=== PATIENT | female | born 1945 | race Caucasian/White ===

== ENCOUNTER 2021-06-21 16:13 | Inpatient (IN) | payer MEDICARE, BC ==
[~2021-06-21] VITALS: Ht 154.9 cm; Wt 80.0 kg
[2021-06-21 17:02] LABS: BASOPHILS % (AUTO) 0.2 % (0-1); EOSINOPHILS % (AUTO) 0 % (0-6); HEMATOCRIT 36.1 % (35.0-45.0); HEMOGLOBIN 11.9 g/dl (12.0-16.0); LYMPHOCYTES # (AUTO) 1.4 X10'3 (1.1-4.8); LYMPHOCYTES % (AUTO) 14.4 % (21-51); MEAN CORPUSCULAR HEMOGLOBIN 29.2 PG (27.0-31.0); MEAN CORPUSCULAR VOLUME 88.3 FL (78-98); MEAN PLATELET VOLUME 6.9 FL (7.4-10.4); MONOCYTES # (AUTO) 0.7 X10'3 (0-0.9); NEUTROPHILS # (AUTO) 7.7 X10'3 (1.8-7.7); NEUTROPHILS % (AUTO) 78.4 % (42-75); PLATELET COUNT 382 X10'3 (140-440); RED BLOOD COUNT 4.08 X10'6 (4.20-5.60); RED CELL DISTRIBUTION WIDTH 13.8 % (11.5-14.5); WHITE BLOOD COUNT 9.8 X10'3 (4.5-11.0)
[2021-06-21] MEDS ORDERED: FURO-150 PO (17:16)
[2021-06-21] MEDS ORDERED: LEVO75TA7 PO (17:16)
[2021-06-21] MEDS ORDERED: HYDR-3968 PO (17:16)
[2021-06-21] MEDS ORDERED: AMLO5TAB4 PO (17:16)
[2021-06-21] MEDS ORDERED: ATOR10TA70 PO (17:16)
[2021-06-21] MEDS ORDERED: POTA8TAB3 PO (17:16)
[2021-06-21 17:17] LABS: ALANINE AMINOTRANSFERASE 12 U/L (12-78); ALBUMIN 3.4 G/DL (3.4-5.0); ALBUMIN/GLOBULIN RATIO 0.9 (1.1-1.5); ALKALINE PHOSPHATASE 74 IU/L (46-116); ANION GAP 11 (8-16); ASPARTATE AMINO TRANSFERASE 33 U/L (10-37); BILIRUBIN,TOTAL 0.6 MG/DL (0.1-1.0); BLOOD UREA NITROGEN 18 MG/DL (7-18); BUN/CREATININE RATIO 13.6 (6.6-38.0); CALCIUM 8.3 MG/DL (8.5-10.1); CHLORIDE 103 MMOL/L (99-107); CREATININE 1.32 MG/DL (0.40-0.90); GLUCOSE 139 MG/DL (70-104); POTASSIUM 3.1 MMOL/L (3.5-5.1); SODIUM 143 MMOL/L (135-145); TOTAL CARBON DIOXIDE 29.2 MMOL/L (24-32); TOTAL PROTEIN 7.2 G/DL (6.4-8.2); eGFR 39 ML/MIN
[2021-06-21] MEDS ORDERED: acetaminophen 325mg tablet PO PRN ×2 (17:30)
[2021-06-21] MEDS ORDERED: potassium Cl 40MEQ/1/2NS 520ml 520 ML IV PRN ×2 (17:30)
[2021-06-21] MEDS ORDERED: magnesium 2GM in 50ml NS 50 ML IV PRN (17:30)
[2021-06-21] MEDS ORDERED: mag hydrox/Alum hydrox/simeth 30ml oral suspension PO PRN (17:30)
[2021-06-21] MEDS ORDERED: morphine 2 MG/ML inj. syringe IV PRN (17:30)
[2021-06-21] MEDS ORDERED: HYDROcodone/acetaminophen 5mg/325mg tablet PO PRN (17:30)
[2021-06-21] MEDS ORDERED: magnesium 4gm in 100ml NS 100 ML IV PRN (17:30)
[2021-06-21] MEDS ORDERED: potassium Cl 20 mEq SR tablet PO PRN (17:30)
[2021-06-21] MEDS: morphine 2 MG/ML inj. syringe IV PRN (18:33)
[2021-06-21] MEDS: ondansetron/PF 4mg/2ml inj IV PRN (18:33)
--- NOTE | 2021-06-21 19:20 | NUR ---
PATIENT ADMITTED TO [facility]B FROM ER FOR FEMUR FRACTURE. PLACED COMFORTABLE IN BED. VITAL SIGNS TAKEN AND RECORDED.
[2021-06-21 19:32] VITALS: BP 121/73
[2021-06-21 20:00] VITALS: BP 117/60
[2021-06-21] MEDS: K and/or MAG REPLACEMENT MC SCH (20:00)
[2021-06-21] MEDS: HYDROcodone/acetaminophen 10/325mg tab PO PRN (20:05)
[2021-06-21] MEDS: atorvastatin 10mg tablet PO SCH (20:08)
[2021-06-21] MEDS: docusate sod 100mg capsule PO SCH (20:08)
[2021-06-21] MEDS: potassium Cl 20 mEq SR tablet PO PRN (20:11)
[2021-06-22] VITALS (23 sets, daily range): BP systolic 97–153; BP diastolic 51–104
[2021-06-22] MEDS: morphine 2 MG/ML inj. syringe IV PRN (01:37)
[2021-06-22] MEDS: potassium Cl 20 mEq SR tablet PO PRN (01:39)
[2021-06-22] MEDS: HYDROcodone/acetaminophen 10/325mg tab PO PRN (04:02)
[2021-06-22] MEDS ORDERED: normal saline 1000ml 1,000 ML IV SCH (06:10)
[2021-06-22 06:16] LABS: BASOPHILS % (AUTO) 0.3 % (0-1); EOSINOPHILS % (AUTO) 0.4 % (0-6); HEMATOCRIT 32.6 % (35.0-45.0); HEMOGLOBIN 10.8 g/dl (12.0-16.0); LYMPHOCYTES # (AUTO) 1.5 X10'3 (1.1-4.8); MEAN CORPUSCULAR HEMOGLOBIN 29.5 PG (27.0-31.0); MEAN CORPUSCULAR HGB CONC 33.2 g/dL (33.0-36.5); MEAN CORPUSCULAR VOLUME 88.7 FL (78-98); MEAN PLATELET VOLUME 7.8 FL (7.4-10.4); MONOCYTES # (AUTO) 0.7 X10'3 (0-0.9); MONOCYTES % (AUTO) 8.7 % (2-12); NEUTROPHILS # (AUTO) 5.4 X10'3 (1.8-7.7); NEUTROPHILS % (AUTO) 70.6 % (42-75); PLATELET COUNT 321 X10'3 (140-440); RED BLOOD COUNT 3.67 X10'6 (4.20-5.60); RED CELL DISTRIBUTION WIDTH 14.1 % (11.5-14.5); WHITE BLOOD COUNT 7.7 X10'3 (4.5-11.0)
[2021-06-22 06:24] LABS: PARTIAL THROMBOPLASTIN TIME 24 SECONDS (22-32)
--- NOTE | 2021-06-22 06:30 | NUR ---
Problems reprioritized. Patient report given, questions answered & plan of care reviewed with RAISA ROSALES.
--- NOTE | 2021-06-22 06:44 | NUR ---
Patient in room [facility]. I have received report from Ariana SINHA RN and had the opportunity to ask questions and assume patient care.
[2021-06-22 06:53] LABS: ALANINE AMINOTRANSFERASE 8 U/L (12-78); ALBUMIN/GLOBULIN RATIO 0.9 (1.1-1.5); ALKALINE PHOSPHATASE 70 IU/L (46-116); ANION GAP 11 (8-16); ASPARTATE AMINO TRANSFERASE 30 U/L (10-37); BILIRUBIN,TOTAL 0.8 MG/DL (0.1-1.0); BLOOD UREA NITROGEN 15 MG/DL (7-18); BUN/CREATININE RATIO 13.8 (6.6-38.0); CALCIUM 8.1 MG/DL (8.5-10.1); CHLORIDE 103 MMOL/L (99-107); CREATININE 1.09 MG/DL (0.40-0.90); GLUCOSE 120 MG/DL (70-104); MAGNESIUM 1.4 MG/DL (1.5-2.4); POTASSIUM 3.4 MMOL/L (3.5-5.1); SODIUM 138 MMOL/L (135-145); TOTAL CARBON DIOXIDE 23.9 MMOL/L (24-32); TOTAL PROTEIN 6.5 G/DL (6.4-8.2); eGFR 49 ML/MIN
[2021-06-22] MEDS: amLODIPine 5mg tablet PO SCH (08:00)
[2021-06-22] MEDS: docusate sod 100mg capsule PO SCH ×2 (08:00→20:00)
[2021-06-22] MEDS: heparin, porcine 5000 units/ml vial SQ SCH ×3 (08:00→16:00)
[2021-06-22] MEDS: K and/or MAG REPLACEMENT MC SCH ×2 (08:00→22:12)
[2021-06-22] MEDS: furosemide 20MG tablet PO SCH ×2 (08:11→11:24)
[2021-06-22] MEDS: levoTHYROXINE 75mcg tablet PO SCH (08:12)
[2021-06-22] MEDS: HYDROmorphone 1 mg/ml syringe IV PRN ×2 (08:13→20:18)
--- NOTE | 2021-06-22 08:36 | NUR ---
per pharmacist mg and k Iv are compatible at Y site and to be piggy backed with NS.
[2021-06-22] MEDS ORDERED: LIDOcaine/PRILOcaine 5gm cream TP ONE (10:05)
[2021-06-22] MEDS: oxyCODONE/APAP 10/325mg tablet PO PRN (11:24)
[2021-06-22] MEDS: ondansetron/PF 4mg/2ml inj IV PRN (11:36)
[2021-06-22] MEDS ORDERED: cyclobenzaprine 10mg tablet PO STA (12:02)
[2021-06-22] MEDS ORDERED: ringers solution, lacted 1,000 ML IV SCH (12:25)
[2021-06-22] MEDS ORDERED: morphine 2 MG/ML inj. syringe IV PRN (12:25)
[2021-06-22] MEDS ORDERED: morphine 4 MG/ML inj SYRINge IV PRN (12:25)
[2021-06-22] MEDS ORDERED: ondansetron/PF 4mg/2ml inj IV PRN (12:25)
[2021-06-22] MEDS ORDERED: meperidine/PF 25mg/ml syringe IV PRN ×3 (12:25)
[2021-06-22] MEDS ORDERED: proCHLORperazine 10 MG/2 ml inj IV PRN (12:25)
[2021-06-22] MEDS: ringers solution, lacted 1,000 ML IV SCH (12:40)
[2021-06-22] MEDS ORDERED: ceFAZolin 2gm in dextrose, iso 50 ML IV ONE (13:00)
--- NOTE | 2021-06-22 13:00 | NUR ---
PRE OP MEDS ORDERED AND WILL START WHEN OR CALLS FOR A TIME FOR SURGERY.
--- NOTE | 2021-06-22 14:20 | NUR ---
OR CALLED AND SAID THEY WERE COMING UP. DID NOT HAVE ENOUGH TIME TO HANG EVERYTHING WITH NO NOTICE. HUNG KALPANA PER RECOVERY NURSE AND SENT ANCEF WITH PT ALONG WITH K THAT NEEDS TO BE REPLACED. PHARMACY STILL HAD NOT SENT UP MY VANCO AND ANCEF TO BE HUNG. CALLED TO HAVE IT SENT STAT
[2021-06-22] MEDS: famotidine/PF 10 mg/ml inj IV SCH ×2 (14:57→20:15)
--- NOTE | 2021-06-22 15:06 | NUR ---
Problems reprioritized. Patient report given, questions answered & plan of care reviewed with Renzo ROSALES in recovery .
--- NOTE | 2021-06-22 15:33 | NUR ---
eunice PAGER ID: [phone] MESSAGE: 350 B JOHNNY PT HAS A LOUIS PLACED BY ER AND NO ORDER CAN I PUT IN A LOUIS A ORDER? RAISA
[2021-06-22] MEDS ORDERED: fentaNYL/PF 50MCG/1 ML 2ML syringe ONE (15:45)
[2021-06-22] MEDS ORDERED: MIDAZolam 1 MG/ML 5ML VIAL ONE (15:45)
--- NOTE | 2021-06-22 17:03 | NUR ---
Received from OR via , accompanied by Anesthesiologist DR GOODEN and report given by Anesthesiolgist. PT PRESENTS WITH 20G LEFT AC, LEFT HIP DRESSING DRY AND INTACT, VSS. Addendum: 06/22/21 at 2003 by Lilo Gonzalez RN, RN Amended: Links added.
--- NOTE | 2021-06-22 18:37 | NUR ---
Problems reprioritized. Patient report given, questions answered & plan of care reviewed with BHARATH SINHA RN .
--- NOTE | 2021-06-22 18:43 | NUR ---
Report called to receiving nurse BHARATH SINHA RN. Transferred via HOSPITAL BED, Belongings WERE LEFT IN PT ROOM BEFORE SURGERY. PT DAUGHTER IN ROOM. PT GIVEN CALL LIGHT, BED IN LOW AND MASOUD POSITION.. Special Issues communicated to receiving nurse. Addendum: 06/22/21 at 2003 by Lilo Gonzalez RN, RN Amended: Links added.
[2021-06-22] MEDS ORDERED: famotidine/PF 10 mg/ml inj IV SCH (20:00)
[2021-06-22] MEDS: atorvastatin 10mg tablet PO SCH (20:13)
[2021-06-22] MEDS: cyclobenzaprine 10mg tablet PO PRN (20:13)
[2021-06-23] VITALS: BP 122/67
[2021-06-23] MEDS: heparin, porcine 5000 units/ml vial SQ SCH ×3 (00:47→15:59)
[2021-06-23] MEDS: HYDROmorphone 1 mg/ml syringe IV PRN (00:52)
[2021-06-23 04:00] VITALS: BP 112/61
--- NOTE | 2021-06-23 06:00 | NUR ---
Problems reprioritized. Patient report given, questions answered & plan of care reviewed with MICHELLE ROSALES.
--- NOTE | 2021-06-23 06:01 | NUR ---
Patient in room [facility]. I have received report from yojana dial rn and had the opportunity to ask questions and assume patient care.
[2021-06-23 07:27] LABS: BASOPHILS % (AUTO) 0.6 % (0-1); EOSINOPHILS % (AUTO) 0.1 % (0-6); HEMATOCRIT 31.4 % (35.0-45.0); HEMOGLOBIN 10.3 g/dl (12.0-16.0); LYMPHOCYTES # (AUTO) 1.2 X10'3 (1.1-4.8); MEAN CORPUSCULAR HEMOGLOBIN 29.2 PG (27.0-31.0); MEAN CORPUSCULAR HGB CONC 32.8 g/dL (33.0-36.5); MEAN CORPUSCULAR VOLUME 88.9 FL (78-98); MEAN PLATELET VOLUME 7.6 FL (7.4-10.4); MONOCYTES # (AUTO) 0.7 X10'3 (0-0.9); MONOCYTES % (AUTO) 10.1 % (2-12); NEUTROPHILS # (AUTO) 5.3 X10'3 (1.8-7.7); NEUTROPHILS % (AUTO) 72.2 % (42-75); PLATELET COUNT 316 X10'3 (140-440); RED BLOOD COUNT 3.54 X10'6 (4.20-5.60); RED CELL DISTRIBUTION WIDTH 13.9 % (11.5-14.5); WHITE BLOOD COUNT 7.3 X10'3 (4.5-11.0)
[2021-06-23] MEDS: levoTHYROXINE 75mcg tablet PO SCH (07:33)
[2021-06-23] MEDS: furosemide 20MG tablet PO SCH ×2 (07:33→12:45)
[2021-06-23] MEDS: oxyCODONE/APAP 10/325mg tablet PO PRN ×2 (07:33→19:17)
[2021-06-23] MEDS: docusate sod 100mg capsule PO SCH ×2 (07:34→21:27)
[2021-06-23] MEDS: amLODIPine 5mg tablet PO SCH (07:35)
[2021-06-23 08:00] VITALS: BP 122/65
[2021-06-23] MEDS: K and/or MAG REPLACEMENT MC SCH ×2 (08:00→20:00)
[2021-06-23 08:09] LABS: ALANINE AMINOTRANSFERASE 10 U/L (12-78); ALBUMIN 2.6 G/DL (3.4-5.0); ALBUMIN/GLOBULIN RATIO 0.7 (1.1-1.5); ALKALINE PHOSPHATASE 65 IU/L (46-116); ANION GAP 9 (8-16); ASPARTATE AMINO TRANSFERASE 28 U/L (10-37); BILIRUBIN,TOTAL 0.9 MG/DL (0.1-1.0); BLOOD UREA NITROGEN 14 MG/DL (7-18); BUN/CREATININE RATIO 11.3 (6.6-38.0); CHLORIDE 103 MMOL/L (99-107); CREATININE 1.24 MG/DL (0.40-0.90); GLUCOSE 120 MG/DL (70-104); MAGNESIUM 2.4 MG/DL (1.5-2.4); SODIUM 138 MMOL/L (135-145); TOTAL CARBON DIOXIDE 26.2 MMOL/L (24-32); TOTAL PROTEIN 6.3 G/DL (6.4-8.2); eGFR 42 ML/MIN
[2021-06-23] MEDS: ringers solution, lacted 1,000 ML IV SCH (08:10)
[2021-06-23] MEDS: famotidine/PF 10 mg/ml inj IV SCH ×2 (08:54→21:27)
[2021-06-23] MEDS: cyclobenzaprine 10mg tablet PO PRN (09:06)
--- NOTE | 2021-06-23 09:36 | NUR ---
Page Sent PAGER ID: [phone] MESSAGE: 350 b maría elena Culver does not have a diet ordered. can I order one. zina [phone]
[2021-06-23 11:00] VITALS: BP 120/60
[2021-06-23] MEDS ORDERED: cyclobenzaprine 10mg tablet PO PRN ×2 (12:20→21:00)
--- NOTE | 2021-06-23 15:00 | NUR ---
PT IV NO LONGER PATENT AND WAS LEAKING. PER SALLY PT NEEDS IV. I PAGED PICC NURSE AND CALLED WITH NO RESPONSE. ALSO ASKED IF THERE IS ANYONE ELSE THAT CAN ATTEMPT TO CHARGE NURSE.
--- NOTE | 2021-06-23 18:34 | NUR ---
Problems reprioritized. Patient report given, questions answered & plan of care reviewed with BHARATH SINHA RN.
--- NOTE | 2021-06-23 18:35 | NUR ---
Patient in room [facility]. I have received report from MICHELLE ROSALES and had the opportunity to ask questions and assume patient care.
[2021-06-23 20:00] VITALS: BP 115/64
[2021-06-23] MEDS: atorvastatin 10mg tablet PO SCH (21:27)
[2021-06-24] VITALS: BP 126/66
[2021-06-24] MEDS: ringers solution, lacted 1,000 ML IV SCH ×2 (00:28→23:46)
[2021-06-24] MEDS: heparin, porcine 5000 units/ml vial SQ SCH ×4 (00:28→23:41)
[2021-06-24] MEDS: oxyCODONE/APAP 10/325mg tablet PO PRN ×4 (04:43→21:24)
--- NOTE | 2021-06-24 06:21 | NUR ---
Problems reprioritized. Patient report given, questions answered & plan of care reviewed with ESTEFANÍA ROSALES.
--- NOTE | 2021-06-24 06:47 | NUR ---
Patient in room [facility]. I have received report from Viviana ROSALES and had the opportunity to ask questions and assume patient care.
[2021-06-24 07:00] VITALS: BP 108/63
[2021-06-24 07:06] LABS: BASOPHILS % (AUTO) 0.6 % (0-1); EOSINOPHILS # (AUTO) 0.1 X10'3 (0-0.9); EOSINOPHILS % (AUTO) 0.9 % (0-6); HEMATOCRIT 28.6 % (35.0-45.0); HEMOGLOBIN 9.6 g/dl (12.0-16.0); LYMPHOCYTES # (AUTO) 1.6 X10'3 (1.1-4.8); LYMPHOCYTES % (AUTO) 20.2 % (21-51); MEAN CORPUSCULAR HEMOGLOBIN 29.7 PG (27.0-31.0); MEAN CORPUSCULAR HGB CONC 33.5 g/dL (33.0-36.5); MEAN CORPUSCULAR VOLUME 88.9 FL (78-98); MEAN PLATELET VOLUME 7.8 FL (7.4-10.4); MONOCYTES # (AUTO) 0.8 X10'3 (0-0.9); MONOCYTES % (AUTO) 9.9 % (2-12); NEUTROPHILS # (AUTO) 5.4 X10'3 (1.8-7.7); NEUTROPHILS % (AUTO) 68.4 % (42-75); PLATELET COUNT 295 X10'3 (140-440); RED BLOOD COUNT 3.22 X10'6 (4.20-5.60); RED CELL DISTRIBUTION WIDTH 13.7 % (11.5-14.5); WHITE BLOOD COUNT 7.9 X10'3 (4.5-11.0)
[2021-06-24 07:34] LABS: ALANINE AMINOTRANSFERASE 9 U/L (12-78); ALBUMIN 2.2 G/DL (3.4-5.0); ALBUMIN/GLOBULIN RATIO 0.6 (1.1-1.5); ALKALINE PHOSPHATASE 57 IU/L (46-116); ANION GAP 6 (8-16); ASPARTATE AMINO TRANSFERASE 21 U/L (10-37); BILIRUBIN,TOTAL 0.8 MG/DL (0.1-1.0); BLOOD UREA NITROGEN 14 MG/DL (7-18); BUN/CREATININE RATIO 12.4 (6.6-38.0); CALCIUM 8.1 MG/DL (8.5-10.1); CHLORIDE 101 MMOL/L (99-107); CREATININE 1.13 MG/DL (0.40-0.90); GLUCOSE 111 MG/DL (70-104); MAGNESIUM 1.9 MG/DL (1.5-2.4); POTASSIUM 3.4 MMOL/L (3.5-5.1); SODIUM 135 MMOL/L (135-145); TOTAL CARBON DIOXIDE 28.5 MMOL/L (24-32); TOTAL PROTEIN 5.8 G/DL (6.4-8.2); eGFR 47 ML/MIN
[2021-06-24] MEDS: docusate sod 100mg capsule PO SCH ×2 (08:11→21:24)
[2021-06-24] MEDS: amLODIPine 5mg tablet PO SCH (08:12)
[2021-06-24] MEDS: levoTHYROXINE 75mcg tablet PO SCH (08:12)
[2021-06-24] MEDS: potassium Cl 20 mEq SR tablet PO PRN ×2 (08:13→15:06)
[2021-06-24] MEDS: furosemide 20MG tablet PO SCH ×2 (08:13→12:04)
[2021-06-24] MEDS: famotidine/PF 10 mg/ml inj IV SCH (08:14)
[2021-06-24] MEDS: K and/or MAG REPLACEMENT MC SCH ×2 (08:15→20:00)
--- NOTE | 2021-06-24 08:47 | NUR ---
PAGER ID: [phone] MESSAGE: 350B JOHNNY V: patient c/o pain, one Percocet order is q4h and one is q6h. can you please clarify this? beth [phone]
[2021-06-24 09:00] VITALS: BP 115/64
[2021-06-24 13:14] VITALS: BP 125/77
[2021-06-24] MEDS ORDERED: ketorolac tromethamine 15mg/ml inj. IV ONE (15:50)
[2021-06-24] MEDS ORDERED: cyclobenzaprine 10mg tablet PO PRN (16:04)
--- NOTE | 2021-06-24 17:45 | NUR ---
PAGER ID: [phone] MESSAGE: 350B Yomi Culver: patient K and Mg replacement protocol fell off the eMAR. can I add it back on? thank you! beth [phone]
[2021-06-24] MEDS ORDERED: potassium Cl 20 mEq SR tablet PO PRN ×2 (17:50)
[2021-06-24] MEDS ORDERED: magnesium 2GM in 50ml NS 50 ML IV PRN (17:50)
[2021-06-24] MEDS ORDERED: magnesium 4gm in 100ml NS 100 ML IV PRN (17:50)
[2021-06-24] MEDS ORDERED: potassium Cl 40MEQ/1/2NS 520ml 520 ML IV PRN (17:50)
[2021-06-24] MEDS ORDERED: magnesium Cl slow-release 64mg tablet PO PRN (17:50)
--- NOTE | 2021-06-24 18:09 | NUR ---
Problems reprioritized. Patient report given, questions answered & plan of care reviewed with BOBBY Mancilla.
--- NOTE | 2021-06-24 18:09 | NUR ---
Student documentation: I have reviewed and agree with all interventions, assessments performed and documented by SN Ike. Student Medication Administration: For this medication-pass time frame, all medication were reviewed, dispensed, administered and documented per hospital policy by SN Ike.
[2021-06-24 19:00] VITALS: BP 110/65
[2021-06-24] MEDS: famotidine 20mg tablet PO SCH (21:24)
[2021-06-24] MEDS: atorvastatin 10mg tablet PO SCH (21:24)
[2021-06-25] VITALS: BP 106/59
[2021-06-25] MEDS: oxyCODONE/APAP 10/325mg tablet PO PRN ×5 (05:11→21:59)
[2021-06-25 06:25] LABS: BASOPHILS # (AUTO) 0.1 X10'3 (0-0.2); BASOPHILS % (AUTO) 0.7 % (0-1); EOSINOPHILS # (AUTO) 0.4 X10'3 (0-0.9); EOSINOPHILS % (AUTO) 4.9 % (0-6); HEMATOCRIT 28.1 % (35.0-45.0); HEMOGLOBIN 9.5 g/dl (12.0-16.0); LYMPHOCYTES # (AUTO) 2.7 X10'3 (1.1-4.8); LYMPHOCYTES % (AUTO) 30.5 % (21-51); MEAN CORPUSCULAR HEMOGLOBIN 29.8 PG (27.0-31.0); MEAN CORPUSCULAR HGB CONC 33.9 g/dL (33.0-36.5); MEAN CORPUSCULAR VOLUME 87.8 FL (78-98); MEAN PLATELET VOLUME 8.3 FL (7.4-10.4); MONOCYTES # (AUTO) 0.8 X10'3 (0-0.9); MONOCYTES % (AUTO) 8.9 % (2-12); NEUTROPHILS # (AUTO) 4.8 X10'3 (1.8-7.7); PLATELET COUNT 310 X10'3 (140-440); RED BLOOD COUNT 3.21 X10'6 (4.20-5.60); RED CELL DISTRIBUTION WIDTH 13.4 % (11.5-14.5); WHITE BLOOD COUNT 8.7 X10'3 (4.5-11.0)
[2021-06-25 06:30] VITALS: BP 118/70
--- NOTE | 2021-06-25 06:50 | NUR ---
Patient in room [facility]. I have received report from BOBBY Nix and had the opportunity to ask questions and assume patient care.
[2021-06-25 06:53] LABS: ALANINE AMINOTRANSFERASE 10 U/L (12-78); ALBUMIN 2.3 G/DL (3.4-5.0); ALBUMIN/GLOBULIN RATIO 0.6 (1.1-1.5); ALKALINE PHOSPHATASE 64 IU/L (46-116); ANION GAP 8 (8-16); ASPARTATE AMINO TRANSFERASE 24 U/L (10-37); BILIRUBIN,TOTAL 0.9 MG/DL (0.1-1.0); BLOOD UREA NITROGEN 17 MG/DL (7-18); BUN/CREATININE RATIO 16.3 (6.6-38.0); CALCIUM 7.8 MG/DL (8.5-10.1); CHLORIDE 100 MMOL/L (99-107); CREATININE 1.04 MG/DL (0.40-0.90); GLUCOSE 92 MG/DL (70-104); MAGNESIUM 1.9 MG/DL (1.5-2.4); POTASSIUM 4.2 MMOL/L (3.5-5.1); SODIUM 136 MMOL/L (135-145); TOTAL CARBON DIOXIDE 28.2 MMOL/L (24-32); TOTAL PROTEIN 6.3 G/DL (6.4-8.2); eGFR 51 ML/MIN
[2021-06-25] MEDS: K and/or MAG REPLACEMENT MC SCH ×2 (08:00→20:00)
[2021-06-25] MEDS: furosemide 20MG tablet PO SCH ×2 (09:50→12:57)
[2021-06-25] MEDS: famotidine 20mg tablet PO SCH ×2 (09:50→20:43)
[2021-06-25] MEDS: amLODIPine 5mg tablet PO SCH (09:51)
[2021-06-25] MEDS: magnesium hydroxide 30ml (MOM) UD suspension PO PRN (09:51)
[2021-06-25] MEDS: docusate sod 100mg capsule PO SCH ×2 (09:51→20:43)
[2021-06-25] MEDS: levoTHYROXINE 75mcg tablet PO SCH (09:51)
[2021-06-25] MEDS: heparin, porcine 5000 units/ml vial SQ SCH ×2 (09:51→15:23)
[2021-06-25 11:00] VITALS: BP 112/58
--- NOTE | 2021-06-25 18:20 | NUR ---
Problems reprioritized. Patient report given, questions answered & plan of care reviewed with BOBBY Nix.
[2021-06-25 20:00] VITALS: BP 109/61
[2021-06-25] MEDS: atorvastatin 10mg tablet PO SCH (20:43)
--- NOTE | 2021-06-25 20:56 | NUR ---
pt declines biscodyl suppository at this time. Pt accepts offer for hot tea at this time . Wants to see if she will have BM tonight .She feels like she is close
[2021-06-26] VITALS: BP 117/66
[2021-06-26] MEDS: heparin, porcine 5000 units/ml vial SQ SCH ×4 (00:57→23:41)
--- NOTE | 2021-06-26 06:05 | NUR ---
Patient in room [facility]. I have received report from BOBBY Nix and had the opportunity to ask questions and assume patient care.
[2021-06-26 06:30] VITALS: BP 124/62
[2021-06-26 06:43] LABS: BASOPHILS # (AUTO) 0.1 X10'3 (0-0.2); BASOPHILS % (AUTO) 0.7 % (0-1); EOSINOPHILS # (AUTO) 0.4 X10'3 (0-0.9); EOSINOPHILS % (AUTO) 4.7 % (0-6); HEMATOCRIT 26.7 % (35.0-45.0); HEMOGLOBIN 9.2 g/dl (12.0-16.0); LYMPHOCYTES # (AUTO) 2.1 X10'3 (1.1-4.8); LYMPHOCYTES % (AUTO) 27.3 % (21-51); MEAN CORPUSCULAR HEMOGLOBIN 29.9 PG (27.0-31.0); MEAN CORPUSCULAR HGB CONC 34.4 g/dL (33.0-36.5); MEAN CORPUSCULAR VOLUME 86.8 FL (78-98); MEAN PLATELET VOLUME 7.6 FL (7.4-10.4); MONOCYTES # (AUTO) 0.7 X10'3 (0-0.9); MONOCYTES % (AUTO) 9.9 % (2-12); NEUTROPHILS # (AUTO) 4.3 X10'3 (1.8-7.7); NEUTROPHILS % (AUTO) 57.4 % (42-75); PLATELET COUNT 367 X10'3 (140-440); RED BLOOD COUNT 3.07 X10'6 (4.20-5.60); RED CELL DISTRIBUTION WIDTH 13.4 % (11.5-14.5); WHITE BLOOD COUNT 7.5 X10'3 (4.5-11.0)
[2021-06-26 06:57] LABS: ALANINE AMINOTRANSFERASE 14 U/L (12-78); ALBUMIN 2.1 G/DL (3.4-5.0); ALBUMIN/GLOBULIN RATIO 0.5 (1.1-1.5); ALKALINE PHOSPHATASE 71 IU/L (46-116); ANION GAP 10 (8-16); ASPARTATE AMINO TRANSFERASE 29 U/L (10-37); BILIRUBIN,TOTAL 0.9 MG/DL (0.1-1.0); BLOOD UREA NITROGEN 18 MG/DL (7-18); BUN/CREATININE RATIO 16.5 (6.6-38.0); CALCIUM 8.1 MG/DL (8.5-10.1); CHLORIDE 100 MMOL/L (99-107); CREATININE 1.09 MG/DL (0.40-0.90); GLUCOSE 117 MG/DL (70-104); MAGNESIUM 1.8 MG/DL (1.5-2.4); SODIUM 137 MMOL/L (135-145); TOTAL CARBON DIOXIDE 27.3 MMOL/L (24-32); TOTAL PROTEIN 6.1 G/DL (6.4-8.2); eGFR 49 ML/MIN
[2021-06-26] MEDS: K and/or MAG REPLACEMENT MC SCH ×2 (07:11→20:00)
[2021-06-26] MEDS: docusate sod 100mg capsule PO SCH ×2 (08:04→20:25)
[2021-06-26] MEDS: furosemide 20MG tablet PO SCH ×2 (08:04→12:47)
[2021-06-26] MEDS: levoTHYROXINE 75mcg tablet PO SCH (08:04)
[2021-06-26] MEDS: amLODIPine 5mg tablet PO SCH (08:04)
[2021-06-26] MEDS: famotidine 20mg tablet PO SCH ×2 (08:04→20:25)
[2021-06-26] MEDS: oxyCODONE/APAP 10/325mg tablet PO PRN ×4 (08:06→21:31)
[2021-06-26] MEDS: bisacodyl 10mg suppository rectal RC PRN (08:06)
[2021-06-26 11:00] VITALS: BP 123/64
--- NOTE | 2021-06-26 12:46 | NUR ---
Initial: Pt admitted w/ L hip fracture s/p fall per EMR; underwent intramedullary nailing 06/22. Pt on Regular diet eating moderately well, avg 71% x 7 meals meeting needs. LBM 06/21 receiving routine and PRN bowel care. No nutrition intervention at this time, will continue to monitor. Recs: 1. Continue Regular diet as tolerated 2. Bowel care per rx 3. Weekly wts Addendum: 06/26/21 at [address] Amended: Links added.
[2021-06-26] MEDS: magnesium hydroxide 30ml (MOM) UD suspension PO PRN (17:13)
[2021-06-26 18:00] VITALS: BP 110/69
--- NOTE | 2021-06-26 18:30 | NUR ---
Problems reprioritized. Patient report given, questions answered & plan of care reviewed with BOBBY Pope.
--- NOTE | 2021-06-26 19:10 | NUR ---
Patient in room [facility]. I have received report from BOBBY Yeboah and had the opportunity to ask questions and assume patient care.
--- NOTE | 2021-06-26 19:11 | NUR ---
Patient in room [facility]. I have received report from BOBBY Yeboah and had the opportunity to ask questions and assume patient care.
--- NOTE | 2021-06-26 19:12 | NUR ---
I have received report from BOBBY Yeboah and had the opportunity to ask questions and assume patient care.
[2021-06-26] MEDS: atorvastatin 10mg tablet PO SCH (20:25)
[2021-06-27] VITALS: BP 145/70
[2021-06-27 06:15] LABS: MAGNESIUM 1.7 MG/DL (1.5-2.4); POTASSIUM 3.6 MMOL/L (3.5-5.1)
--- NOTE | 2021-06-27 06:28 | NUR ---
Problems reprioritized. Patient report given, questions answered & plan of care reviewed with BOBBY Caldwell.
--- NOTE | 2021-06-27 06:39 | NUR ---
Student documentation: I have reviewed and agree with all interventions, assessments,andreport given to BOBBY Caldwell performed and documented by .
--- NOTE | 2021-06-27 07:29 | NUR ---
Patient in room [facility]. I have received report from Edilia ROSALES and had the opportunity to ask questions and assume patient care.
[2021-06-27 08:00] VITALS: BP 127/79
[2021-06-27] MEDS: K and/or MAG REPLACEMENT MC SCH ×2 (08:00→20:00)
[2021-06-27] MEDS: famotidine 20mg tablet PO SCH ×2 (09:12→19:18)
[2021-06-27] MEDS: oxyCODONE/APAP 5-325mg tablet PO PRN (09:13)
[2021-06-27] MEDS: levoTHYROXINE 75mcg tablet PO SCH (09:13)
[2021-06-27] MEDS: furosemide 20MG tablet PO SCH ×2 (09:14→12:33)
[2021-06-27] MEDS: docusate sod 100mg capsule PO SCH ×2 (09:14→19:18)
[2021-06-27] MEDS: heparin, porcine 5000 units/ml vial SQ SCH ×2 (09:21→16:20)
[2021-06-27] MEDS: amLODIPine 5mg tablet PO SCH (09:24)
[2021-06-27] MEDS: cyclobenzaprine 10mg tablet PO PRN ×2 (09:34→10:03)
[2021-06-27 11:00] VITALS: BP 110/63
--- NOTE | 2021-06-27 14:48 | NUR ---
Paged PT to get patient back to bed.
[2021-06-27] MEDS: oxyCODONE/APAP 10/325mg tablet PO PRN ×2 (14:53→19:19)
[2021-06-27 18:00] VITALS: BP 115/61
--- NOTE | 2021-06-27 18:30 | NUR ---
I have received report from BOBBY Palacio and had the opportunity to ask questions and assume patient care.
--- NOTE | 2021-06-27 18:30 | NUR ---
Problems reprioritized. Patient report given, questions answered & plan of care reviewed with Niko ROSALES.
[2021-06-27] MEDS: magnesium hydroxide 30ml (MOM) UD suspension PO PRN (19:19)
[2021-06-27] MEDS: atorvastatin 10mg tablet PO SCH (21:58)
[2021-06-28] VITALS: BP 107/62
[2021-06-28] MEDS: heparin, porcine 5000 units/ml vial SQ SCH ×3 (01:46→15:56)
[2021-06-28] MEDS: oxyCODONE/APAP 10/325mg tablet PO PRN ×3 (02:28→19:52)
[2021-06-28] MEDS: bisacodyl 10mg suppository rectal RC PRN (05:00)
--- NOTE | 2021-06-28 06:21 | NUR ---
Problems reprioritized. Patient report given, questions answered & plan of care reviewed with BOBBY Caldwell.
--- NOTE | 2021-06-28 06:29 | NUR ---
Patient in room [facility]. I have received report from Niko ROSALES and had the opportunity to ask questions and assume patient care.
[2021-06-28 07:18] LABS: POTASSIUM 3.3 MMOL/L (3.5-5.1)
[2021-06-28] MEDS: docusate sod 100mg capsule PO SCH ×2 (07:49→19:53)
[2021-06-28] MEDS: levoTHYROXINE 75mcg tablet PO SCH (07:49)
[2021-06-28] MEDS: furosemide 20MG tablet PO SCH ×2 (07:49→12:44)
[2021-06-28] MEDS: famotidine 20mg tablet PO SCH ×2 (07:49→19:52)
[2021-06-28] MEDS: amLODIPine 5mg tablet PO SCH (07:50)
[2021-06-28] MEDS: cyclobenzaprine 10mg tablet PO PRN (07:52)
[2021-06-28 08:00] VITALS: BP 111/58
[2021-06-28] MEDS ORDERED: potassium Cl 20 mEq SR tablet PO STA (09:22)
[2021-06-28] MEDS ORDERED: methylnaltrexone br 12mg/0.6ml inj***SubQ only SQ ONE (09:25)
[2021-06-28] MEDS: K and/or MAG REPLACEMENT MC SCH ×2 (10:33→19:42)
[2021-06-28 11:00] VITALS: BP 114/67
[2021-06-28] MEDS: oxyCODONE/APAP 5-325mg tablet PO PRN (12:43)
--- NOTE | 2021-06-28 17:00 | NUR ---
Dressing on left incision site is soiled, Dr. jhaveri was notified, he stated it is Ok to change dressing. Incision site was cleaned with normal saline, pated dry with guaze, island dressing applied. patient tolerated it well.
--- NOTE | 2021-06-28 18:30 | NUR ---
Patient in room [facility]. I have received report from BOBBY Caldwell and had the opportunity to ask questions and assume patient care. Addendum: 06/28/21 at 1936 by Francis Esteban RN Amended: Links added.
[2021-06-28 19:30] VITALS: BP 120/67
--- NOTE | 2021-06-28 19:30 | NUR ---
Sitting up in bed eating dinner. req pain medication when due Addendum: 06/28/21 at 7 by Francis Esteban RN Amended: Links added.
[2021-06-28] MEDS: atorvastatin 10mg tablet PO SCH (19:52)
[2021-06-28 23:00] VITALS: BP 131/72
[2021-06-29] MEDS: heparin, porcine 5000 units/ml vial SQ SCH ×2 (00:15→07:57)
[2021-06-29] MEDS: oxyCODONE/APAP 10/325mg tablet PO PRN ×2 (00:15→05:14)
--- NOTE | 2021-06-29 06:39 | NUR ---
Problems reprioritized. Patient report given, questions answered & plan of care reviewed with BOBBY Caldwell. Addendum: 06/29/21 at 0640 by Francis Esteban RN Amended: Links added.
[2021-06-29] MEDS: famotidine 20mg tablet PO SCH (07:55)
[2021-06-29] MEDS: oxyCODONE/APAP 5-325mg tablet PO PRN ×2 (07:55→12:23)
[2021-06-29] MEDS: furosemide 20MG tablet PO SCH ×2 (07:55→12:22)
[2021-06-29] MEDS: docusate sod 100mg capsule PO SCH (07:56)
[2021-06-29] MEDS: amLODIPine 5mg tablet PO SCH (07:56)
[2021-06-29] MEDS: levoTHYROXINE 75mcg tablet PO SCH (07:56)
[2021-06-29] MEDS: K and/or MAG REPLACEMENT MC SCH (07:57)
[2021-06-29 08:00] VITALS: BP 123/58
[2021-06-29] MEDS: cyclobenzaprine 10mg tablet PO PRN (09:24)
[2021-06-29] MEDS ORDERED: MAGN400O6 PO (09:28)
[2021-06-29] MEDS ORDERED: OXYC1TAB17 PO (09:28)
[2021-06-29] MEDS ORDERED: DOCU100C40 PO (09:28)
[2021-06-29] MEDS ORDERED: CYCL-1 PO (09:28)
--- NOTE | 2021-06-29 09:34 | NUR ---
Patient stated her pain to be 7, Flexeril given. LBM was 06/21, relistor given on 06/28. No BM yet. Dr Ojeda notified, He stated that patient will be discharge today and will give her something to go home as patient have about 2 and half hour to travel home.
[2021-06-29 11:00] VITALS: BP 112/65
--- NOTE | 2021-06-29 14:00 | NUR ---
Patient discharge in stable condition. Sabi RN spoke with Kristen (Case Management) with regards to discharging patient with [facility] as patient have about 2 and half hour to traveled home. Kristen stated is OK per Sabi as patient will resume home health care tomorrow. Patient Discharge with [facility], no IV line on patient. Discharge instruction given to patient and daughter, patient left unit with a medi van assisted by daughter at 1345.
== END 2021-06-29 13:45 | disposition home health service (06) | DRG 480 ==
LOC: ER 16:14 → ED HOLD 17:32 → SUR 3N 19:13
PROVIDERS: ADMIT Family Medicine; ATTEND Family Medicine
PROC: 0QS704Z Reposition Left Upper Femur with Internal Fixation Device, Open Approach (ICD-10-PCS; principal; 2021-06-22 15:40)
DX: S72.145A Nondisplaced intertrochanteric fracture of left femur, initial encounter for closed fracture (principal); N17.0 Acute kidney failure with tubular necrosis; D62 Acute posthemorrhagic anemia; I10 Essential (primary) hypertension; E03.9 Hypothyroidism, unspecified; E87.6 Hypokalemia; G89.29 Other chronic pain; E86.0 Dehydration; M19.90 Unspecified osteoarthritis, unspecified site; R07.89 Other chest pain; E11.9 Type 2 diabetes mellitus without complications; K59.00 Constipation, unspecified; W18.39XA Other fall on same level, initial encounter; Z79.899 Other long term (current) drug therapy; Z90.710 Acquired absence of both cervix and uterus; Z90.49 Acquired absence of other specified parts of digestive tract; Y93.89 Activity, other specified; Y92.098 Other place in other non-institutional residence as the place of occurrence of the external cause; Y99.8 Other external cause status
CPT/HCPCS: 36415; 71045; 73000; 73030; 73502; 76000; 80053; 82948; 83735; 83880; 84132; 84443; 85025; 85610; 85730; 86885; 86900; 86901; 87081; 93005; 97110; 97112; 97161; 97530; 97535; 99285; A4618; A7000; C1713; G0378; J1170; J1644; J1885; J2212; J2250; J2270; J2405; J3010; J3370; J3475; J3490; J7030; J7120